=== PATIENT | male | born 1965 | race Caucasian/White ===

== ENCOUNTER 2019-05-18 19:04 | Emergency (ER) | payer OTHER ==
[~2019-05-18] VITALS: Ht 185.4 cm; Wt 118.7 kg
[~2019-05-18 19:04] MED LIST: CLON-379 PO; HYDR25TA6 PO
[2019-05-18 19:14] VITALS: Ht 185.4 cm; Wt 118.7 kg
--- NOTE | 2019-05-18 20:04 | ERD ---
ER Documentation Chief Complaint Chief Complaint ear pressure from ear wax x 2 weeks c/o jaw pain, left upper arm numb HPI This is a 54-year-old male that presents to the emergency department complaining of ear pressure on the left ear for the past several months. The patient initially stated he had decreased his hearing and went to an urgent care clinic and was told he had a serum impaction and placed on amoxicillin. His symptoms have not improved and there was no ear irrigation and therefore he return to the clinic. He was placed on a further dose of antibiotics with irrigation of his ear. His hearing had improved. However he states 2 weeks ago he started to notice that his hearing began to worsen. He complains of mild pain in his left jaw. The patient was at [facility] today and stated he felt very lightheaded and di zzy and felt as though he was in a pass out. He started to notice some numbness of his left upper extremity. The patient stated he googled his symptoms on the Internet and was concerned he could be having a stroke. He denied any chest pain or pressure. He states he does not have a primary care physician and at the urgent care clinic he was told that his pressure was high. The prescribed medication but he states he has not been taking that. He denies any weakness of his upper or lower extremities. ROS All systems reviewed and are negative except as per history of present illness. Allergies Allergies: Coded Allergies: No Known Allergy (Unverified , 05/18/19) Physical Exam Vitals Vital Signs Date Temp Pulse Resp B/P (MAP) Pulse Ox O2 O2 Flow FiO2 Time Delivery Rate 05/18/19 97.6 100 16 168/112 97 19:14 (130) Physical Exam Constitutional:Well-developed. Well-nourished. HEENT:Normocephalic. Atraumatic.Pupils were equal round reactive to light. Moist mucous membranes.No tonsillar exudates. No bulging or erythema of the tympanic membranes bilaterally. No postauricular tenderness bilaterally. No trismus. Respiratory: Not using accessory muscles of respiration.Lungs were clear to auscultation bilaterally. No rhonchi. No rales. No wheezing. Cardiovascular: Regular rate regular rhythm.No murmurs. No rubs were appreciated.S1, S2 normal. Distal pulses are palpable 2+ bilaterally. GI: Abdomen was soft. Nontender. Non Distended. No pulsatile abdominal masses or bruits. No rebound. No guarding. Bowel sounds were present and normal. Muscle skeletal: Full range of motion of both the upper and lower extremities bilaterally.Normal muscle tone.No assymetrical calf tenderness or swelling. NEURO: Patient was alert, awake, orientated x3.No facial droop. Gait observed and normal with no ataxia.Speech had regular rate and rhythm. No focal neurological deficits. Result Diagram: 05/18/19210805/18/192108 Results 24 hrs Laboratory Tests Test 05/18/19 21:09 White Blood Count 8.5 10^3/ul Red Blood Count 4.90 10^6/ul Hemoglobin 16.8 g/dl Hematocrit 48.8 % Mean Corpuscular Volume 99.6 fl Mean Corpuscular Hemoglobin 34.3 pg Mean Corpuscular Hemoglobin Concent 34.4 g/dl Red Cell Distribution Width 12.5 % Platelet Count 154 10^3/UL Mean Platelet Volume 9.2 fl Immature Granulocytes % 0.200 % Neutrophils % 81.0 % Lymphocytes % 13.2 % Monocytes % 5.2 % Eosinophils % 0.2 % Basophils % 0.2 % Nucleated Red Blood Cells % 0.0 /100WBC Immature Granulocytes # 0.020 10^3/ul Neutrophils # 6.9 10^3/ul Lymphocytes # 1.1 10^3/ul Monocytes # 0.4 10^3/ul Eosinophils # 0.0 10^3/ul Basophils # 0.0 10^3/ul Nucleated Red Blood Cells # 0.0 10^3/ul Prothrombin Time 13.3 Sec Prothrombin Time Ratio 1.0 INR International Normalized Ratio 1.00 Activated Partial Thromboplast Time 28.0 Sec Sodium Level 140 mmol/L Potassium Level 4.3 mmol/L Chloride Level 103 mmol/L Carbon Dioxide Level 26 mmol/L Anion Gap 11 Blood Urea Nitrogen 13 mg/dl Creatinine 0.94 mg/dl Est Glomerular Filtrat Rate mL/min > 60 mL/min Glucose Level 104 mg/dl Calcium Level 9.7 mg/dl Total Bilirubin 1.2 mg/dl Direct Bilirubin 0.00 mg/dl Indirect Bilirubin 1.2 mg/dl Aspartate Amino Transf (AST/SGOT) 70 IU/L Alanine Aminotransferase (ALT/SGPT) 107 IU/L Alkaline Phosphatase 61 IU/L Total Protein 8.0 g/dl Albumin 4.6 g/dl Globulin 3.40 g/dl Albumin/Globulin Ratio 1.35 Procedures/MDM This patient presented to the emergency department with severely elevated blood pressure. My differential diagnosis included but was not limited to conditions that could end-organ damage such as acute coronary syndrome, acute pulmonary edema, aortic dissection, subarachnoid hemorrhage, intracerebral hemorrhage, cerebral infarction, withdrawal syndromes from beta blockers, or states of cat echolamine excess such as pheochromocytoma or drug intoxication. Ancillary lab work was obtained. There was no elevation in the BUN and creatinine to suggest acute renal failure. Electrolytes were normal. Cardiac enzyme was normal and the 12 lead EKG showed no acute ischemic changes or left ventricular hypertrophy. 12 Lead EKG tracing ordered and reviewed by myself showed: Normal sinus rhythm of 76 bpm and no arrhythmia. AR interval normal. QRS duration normal. No ST segment elevation No ST segment depression. No changes consistent with acute ischemia. I also obtained a CT scan of the patient's head which showed no intracerebral hemorrhage mass-effect or midline shift and no sinusitis. Given that the patient had an absence of cerebral, ocular, cardiac or renal damage the hypertensive urgency was treated with oral agents in the emergency room with improvement of the patient's blood pressure. The patient likely appeared to be complaint with primary care physician and will follow up with their PCP in the next 24-48 hours. They were instructed to return to the emergency department at anytime if there is any worsening of their condition such as development of chest pain or a headache. They were instructed to resume previous medication regimen or initiate a suitable medication regimen under care of the PCP to enable proper monitoring for drug reactions. The patient was also informed on the adverse side effects and adverse drug interactions of the medications prescribed to them by myself. The patient gave informed consent to the prescription of the new medication. Departure Diagnosis: Primary Impression: Decreased hearing of left ear Additional Impression: Accelerated hypertension Condition: MARANDA Amezquita MD May 18, 2019 20:04
[2019-05-18 22:42] VITALS: BP 138/98; PULSE 83; RESP 17
== END 2019-05-18 22:45 | disposition home or self-care (01) ==
LOC: E/R 19:04
DX: H91.92 Unspecified hearing loss, left ear (principal); I10 Essential (primary) hypertension; R42 Dizziness and giddiness
CPT/HCPCS: 70450; 80053; 85025; 85610; 85730; 93005